=== PATIENT | female | born 1990 | race Two or more races ===

== ENCOUNTER 2018-12-26 17:59 | Emergency (ER) | payer OTHER | END 2018-12-26 21:30 | disposition home or self-care (01) | LOC: JER 17:59 ==

== ENCOUNTER 2019-01-06 12:16 | Emergency (ER) | payer OTHER ==
[2019-01-06 12:39] VITALS: BP 111/74; PULSE 86; TEMP 98.3; BMI 19.5
--- NOTE | 2019-01-06 12:57 | PDOC ---
History of Present Illness - General Chief Complaint: Cold Symptoms Stated Complaint: HEADACHE/FEVER Time Seen by Provider: 01/06/19 12:44 History Source: Patient Exam Limitations: No Limitations - History of Present Illness Associated Symptoms: reports: headache, sore throat. denies: chest pain/ soreness, cough, dizziness, earache, facial pain, fever/chills, nasal drainage, shortness of breath, sinus infection Past History - Travel Traveled outside of the country in the last 30 days: No Close contact w/someone who was outside of country & ill: No - Past Medical History Allergies/Adverse Reactions: Allergies Allergy/AdvReac Type Severity Reaction Status Date / Time No Known Allergies Allergy Verified 01/06/19 12:39 Home Medications: Ambulatory Orders Sulfamethoxazole/Trimethoprim [Bactrim Ds -] 1 tab PO BID #20 tablet 12/26/18 Diphenhydramine HCl [Benadryl -] 25 mg PO Q8H #21 capsule 01/06/19 Prednisone [Deltasone] 20 mg PO ACDIN 4 Days #8 tablet 01/06/19 Triamcinolone 0.5% Ointment [Aristocort 0.5% Ointment -] 1 applic TP BID 7 Days #1 tube 01/06/19 COPD: No - Suicide/Smoking/Psychosocial Hx Smoking History: Never smoked Have you smoked in the past 12 months: No Information on smoking cessation initiated: No Hx Alcohol Use: No Drug/Substance Use Hx: No Respiratory Specific PMHX - Complaint Specific PMHX Angina: No Review of Systems - Review of Systems Constitutional: Yes: Fever. No: Chills HEENTM: Yes: Throat Pain. No: Recent change in vision, Ear Discharge, Nose Pain , Nose Congestion, Tinnitus, Hearing Loss, Throat Swelling Respiratory: No: Shortness of Breath Cardiac (ROS): No: Chest Pain Integumentary: Yes: Flushing, Pruritus, Rash. No: Bruising, Change in Color, Dryness, Erythema Neurological: No: Dizziness *Physical Exam - Vital Signs Last Vital Signs Temp Pulse Resp BP Pulse Ox 98.3 F 86 16 111/74 100 01/06/19 12:37 01/06/19 12:37 01/06/19 12:37 01/06/19 12:37 01/06/19 12:37 - Physical Exam General Appearance: Yes: Nourished Respiratory/Chest: positive: Lungs Clear, Normal Breath Sounds Cardiovascular: positive: Regular Rhythm, Regular Rate, S1, S2 Extremity: positive: Normal Capillary Refill, Normal Inspection, Normal Range of Motion Integumentary: positive: Hives, Rash (macular rash mixed with hives noted in b/ l forearm, thighs, abd and face) Neurologic: positive: assistant operator II-XII NML intact, Fully Oriented, Alert, Normal Mood/ Affect, Normal Response, Motor Strength 11/22 Medical Decision Making - Medical Decision Making 01/06/19 13:15 28y/o F with pruritus rash X 2 days pt also c/o fever and sorethroat she finished a 10 days course of bactrim for UTI 2 days ago, this was her first time taking bactrim she denies SOB, throat discomfort, cough 01/06/19 14:42 RS neg likely a delay drug rash *DC/Admit/Observation/Transfer Diagnosis at time of Disposition: Rash, Sorethroat - Discharge Dispostion Condition at time of disposition: Stable Decision to Admit order: No - Prescriptions Prescriptions: Diphenhydramine HCl [Benadryl -] 25 mg PO Q8H #21 capsule Prednisone [Deltasone] 20 mg PO ACDIN 4 Days #8 tablet Triamcinolone 0.5% Ointment [Aristocort 0.5% Ointment -] 1 applic TP BID 7 Days #1 tube - Referrals Referrals: Eron Hector MD [Non Staff, Medical] - Jere Yang MD [Non Staff, Medical] - Nelson Monhaan [Staff Physician] - - Patient Instructions Printed Discharge Instructions: DI for Hives Additional Instructions: Your strep was negative today, a culture was sent out to the lab, if it becomes positive you will be contacted for antibiotics your rash is likely a delay drug reaction Take medication as prescribed follow up with dermatology Return to the ER if worsening symptoms occurs - Post Discharge Activity Forms/Work/School Notes: Back to Work
[2019-01-06] MEDS ORDERED: predniSONE 20 MG TABLET (UD) PO ONE (13:06)
[2019-01-06] MEDS ORDERED: LORATADINE 10 MG TABLET PO ONE (13:06)
[2019-01-06] MEDS ORDERED: LORATADINE 10 MG TABLET ONE (13:12)
[2019-01-06] MEDS ORDERED: predniSONE 20 MG TABLET (UD) ONE (13:12)
== END 2019-01-06 13:39 | disposition home or self-care (01) ==
LOC: JERFT 12:16
DX: J02.9 Acute pharyngitis, unspecified (principal); R21 Rash and other nonspecific skin eruption
CPT/HCPCS: 87070; 87880; 99281-25

== ENCOUNTER 2020-04-20 06:07 | Inpatient (IN) | payer BC ==
[2020-04-20] MEDS ORDERED: ELECTROLYTE-148 SOLN 500 ML IV ONE (08:05)
[2020-04-20] MEDS ORDERED: PROMETHAZINE HCL 25 MG/1 ML VIAL IVPB ONE (08:05)
[2020-04-20] MEDS ORDERED: BUTORPHANOL TARTRATE 1 MG/ML VIAL IVPB PRN (08:05)
[2020-04-20] MEDS ORDERED: ELECTROLYTE-148 SOLN 1,000 ML IV SCH ×2 (08:15)
[2020-04-20 08:37] VITALS: BMI 26.0
[2020-04-20 08:56] LABS: POC NITRAZINE NEG
[2020-04-20] MEDS ORDERED: AMPICILLIN - 2 GM in SODIUM CHLORIDE 100 ML IVPB ONE (09:03)
--- NOTE | 2020-04-20 09:03 | HP ---
Past Medical History - Primary Care Physician PCP:: Narcisa Moser - Admission Chief Complaint: SROM at 5 am. 37 week History Source: Patient Limitations to Obtaining History: No Limitations - Past Medical History ...: 1 ...Para: 0 ...Term: 0 ...: 0 ...Spon : 0 ...Induced : 0 ...Living Children: 0 ...Multiple Gestation: 0 ...LMP: 08/05/19 ... Weeks Gestation by Dates: 37.5 ...EDC by Dates: 05/06/20 ...EDC by Sono: 05/11/20 - Past Surgical History Past Surgical History: Yes: None Hx Myomectomy: No Hx Transabdominal Cerclage: No - Smoking History Smoking history: Never smoked Have you smoked in the past 12 months: No - Alcohol/Substance Use Hx Alcohol Use: No History of Substance Use: reports: None - Social History History of Recent Travel: No Home Medications - Allergies Allergies/Adverse Reactions: Allergies Allergy/AdvReac Type Severity Reaction Status Date / Time Sulfa (Sulfonamide Allergy Intermediate Hives Verified 04/20/20 07:03 Antibiotics) - Home Medications Home Medications: Ambulatory Orders Vitamins (Sjr) - 1 tab PO DAILY 04/20/20 Review of Systems - Review of Systems Constitutional: reports: No Symptoms Eyes: reports: No Symptoms HENT: reports: No Symptoms Neck: reports: No Symptoms Cardiovascular: reports: No Symptoms Respiratory: reports: No Symptoms Gastrointestinal: reports: No Symptoms Genitourinary: reports: No Symptoms Breasts: reports: No Symptoms Reported Musculoskeletal: reports: No Symptoms Integumentary: reports: No Symptoms Neurological: reports: No Symptoms Endocrine: reports: No Symptoms Hematology/Lymphatic: reports: No Symptoms Psychiatric: reports: No Symptoms Physical Exam - Maternity Vital Signs: Vital Signs Temperature 97.6 F 04/20/20 06:57 Pulse Rate 80 04/20/20 06:57 Respiratory Rate 18 04/20/20 06:57 Blood Pressure 116/80 04/20/20 06:57 O2 Sat by Pulse Oximetry (%) Constitutional: Yes: Well Nourished, No Distress Cardiovascular: Yes: WNL - Abdominal Exam/OB Fundal Height: 37 Number of Fetuses: Single Presentation: Vertex Contractions: Yes Regularity: Irritability Intensity: Unaware Monitor Mode: External Heart Rate Location: [facility] Category: I Decelerations: None - Vaginal Exam/OB Dilatation (cm): 1 Amniotic Membrane Status: Ruptured Amniotic Fluid: Yes: Clear Presentation: Vertex/Position Problem List - Problems (1) Spontaneous rupture of membranes Code(s): KXW0700 - (2) 37 weeks gestation of Code(s): Z3A.37 - 37 WEEKS GESTATION OF Assessment/Plan PROM 37 week Cat 1 GBS not in labor Plan Observe start pitocin if no labor
[2020-04-20 09:28] LABS: BASO % 0.5 % (0-2.0); EOS % 0.9 % (0-4.5); HEMATOCRIT 38.6 % (32.4-45.2); HEMOGLOBIN 13.3 GM/dL (10.7-15.3); LYMPH % 17.3 % (8-40); MCH 34.2 pg (25.7-33.7); MCHC 34.4 g/dl (32.0-36.0); MEAN CELL VOLUME 99.3 fl (80-96); MEAN PLT VOLUME 9.2 fl (7.5-11.1); MONO % 6.8 % (3.8-10.2); NEUT % 74.5 % (42.8-82.8); PLATELET COUNT 193 K/MM3 (134-434); RBC 3.89 M/mm3 (3.60-5.2); RDW 13.3 % (11.6-15.6); WHITE BLOOD COUNT 8.5 K/mm3 (4.0-10.0)
[2020-04-20 09:33] LABS: INR 0.85 (0.83-1.09)
[2020-04-20 09:36] LABS: ACTIVATED PTT 28.5 SECONDS (25.2-36.5)
[2020-04-20 09:57] LABS: BLOOD UREA NITROGEN 9.5 mg/dL (7-18); CALCIUM 8.7 mg/dL (8.5-10.1); CREATININE 0.6 mg/dL (0.55-1.3)
[2020-04-20] MEDS ORDERED: AMPICILLIN SODIUM 2 GM VIAL ONE (09:57)
[2020-04-20] MEDS ORDERED: AMPICILLIN SODIUM 1 GM VIAL ONE ×3 (14:11→22:02)
[2020-04-20] MEDS: AMPICILLIN - 1 GM in SODIUM CHLORIDE 100 ML IVPB SCH ×3 (14:23→22:05)
--- NOTE | 2020-04-20 22:31 | PN ---
Ante-Partal Exam - Subjective Subjective: Pt with contractions Vital Signs: Vital Signs Temperature 98.2 F 04/20/20 21:00 Pulse Rate 70 04/20/20 21:00 Respiratory Rate 20 04/20/20 21:00 Blood Pressure 106/77 04/20/20 21:00 O2 Sat by Pulse Oximetry (%) Bleeding: No Headache: No Visual changes: No Right upper quadrant pain: No - Contractions Contractions: Yes Regularity: Regular Intensity: Moderate Monitor Mode: External - Exam during Labor Variability: Moderate Heart Rate Location: [facility] Category: I Monitor Accelerations: Present Amniotic Membrane Status: Ruptured Presentation: Vertex - Assessment/Plan Assessment/Plan: PROM 37 week Cat 1 [facility]
[2020-04-20] MEDS ORDERED: OXYTOCIN 30 UNITS in 0.9% NS 30 UNIT/500 ML INFUS.BAG IVPB SCH (23:15)
[2020-04-21] MEDS ORDERED: AMPICILLIN SODIUM 1 GM VIAL ONE ×2 (01:57→06:24)
[2020-04-21] MEDS: AMPICILLIN - 1 GM in SODIUM CHLORIDE 100 ML IVPB SCH ×2 (02:00→06:22)
[2020-04-21] MEDS ORDERED: OXYTOCIN 30 UNITS in 0.9% NS 30 UNIT/500 ML INFUS.BAG IVPB ONE (04:27)
[2020-04-21] MEDS ORDERED: BUTORPHANOL TARTRATE 2 MG/ML VIAL ONE (05:25)
[2020-04-21] MEDS ORDERED: PROMETHAZINE HCL 25 MG/1 ML VIAL ONE (05:26)
[2020-04-21] MEDS ORDERED: OXYTOCIN 20 UNITS in 0.9% NS 20 UNIT/1,000 ML INFUS.BAG IV ONE (06:03)
[2020-04-21] MEDS ORDERED: LIDOCAINE HCL 1% PRESERVATIVE FREE - 30ML VIAL ONE (06:03)
[2020-04-21] MEDS ORDERED: BENZOCAINE 20% 57 GM BOTTLE TP PRN (07:21)
[2020-04-21] MEDS ORDERED: oxyCODONE HCL 5 MG TABLET PO PRN (07:21)
[2020-04-21] MEDS ORDERED: METHYLERGONOVINE MALEATE 0.2 MG/1 ML AMP IM PRN (07:21)
[2020-04-21] MEDS ORDERED: ACETAMINOPHEN 325 MG TABLET (FP) PO PRN (07:21)
[2020-04-21] MEDS ORDERED: BISACODYL 10 MG SUPP.RECT PR PRN (07:21)
[2020-04-21] MEDS ORDERED: IBUPROFEN 600 MG TABLET (FP) PO PRN (07:21)
[2020-04-21] MEDS ORDERED: WITCH HAZEL 50% (TUCKS) 40 PAD/JAR PAD TP PRN (07:21)
[2020-04-21] MEDS ORDERED: BENZOCAINE 28 GM HEMORRHOIDAL OINTMENT PR PRN (07:21)
--- NOTE | 2020-04-21 07:29 | PN ---
Delivery - Delivery Vaginal Delivery: No Problems, Spontaneous Type of Anesthesia: Local Episiotomy/Laceration: Right Mediolateral EBL (cc): 250 Delivery, Single - [place] Feeding Plan Initial Plan: Exclusive throughout hospitalization
[2020-04-21] MEDS ORDERED: OXYTOCIN 20 UNITS in 0.9% NS 20 UNIT/1,000 ML INFUS.BAG IV SCH (07:30)
[2020-04-21 07:43] LABS: CORD BASE EXCESS -0.5 mmol/L (0-2); CORD HCO3 26.2 mmHg (20-29); CORD pH 7.338 (7.14-7.44)
--- NOTE | 2020-04-22 07:05 | PN ---
Post Note - Post Date of Delivery: 04/21/20 Vital Signs: Vital Signs - 24 hr 04/21/20 04/21/20 04/21/20 07:15 07:30 07:45 Temperature 97.8 F Pulse Rate 79 68 75 Respiratory 18 18 18 Rate Blood Pressure 118/55 L 108/64 103/62 O2 Sat by Pulse 100 100 100 Oximetry (%) 04/21/20 04/21/20 04/21/20 08:00 09:15 14:17 Temperature 98.4 F 98.2 F Pulse Rate 74 81 85 Respiratory 18 20 20 Rate Blood Pressure 103/62 115/73 123/73 O2 Sat by Pulse 100 100 Oximetry (%) 04/21/20 04/21/20 04/22/20 17:19 22:00 06:00 Temperature 98.3 F 97.2 F L 98.1 F Pulse Rate 92 H 105 H 76 Respiratory 20 18 18 Rate Blood Pressure 117/62 120/68 124/81 O2 Sat by Pulse 97 Oximetry (%) Labs: Laboratory Results - last 24 hr 04/20/20 04/21/20 04/21/20 09:05 06:52 Unknown Cord Blood pH 7.338 Cord Blood PCO2 50.0 Cord Blood PO2 23.3 Cord Blood HCO3 26.2 Cord Base Excess -0.500 L COVID-19 (NAV) Not detected SARS-CoV-2 (PCR) Negative - Subjective Subjective: No Complaints - Objective Afebrile: Yes Breast: Not engorged Abdomen: Soft, Non-tender Uterus: Fundus firm, Non-tender Vagina: Scant lochia Extremities: Non-tender - Assessment/Plan (1) Spontaneous rupture of membranes Assessment: S/P Normal Plan: Routine Care
[2020-04-22 07:50] LABS: BASO % 0.5 % (0-2.0); HEMATOCRIT 33.5 % (32.4-45.2); HEMOGLOBIN 11.1 GM/dL (10.7-15.3); LYMPH % 21.6 % (8-40); MCH 33.1 pg (25.7-33.7); MCHC 33.2 g/dl (32.0-36.0); MEAN CELL VOLUME 99.6 fl (80-96); MEAN PLT VOLUME 8.9 fl (7.5-11.1); MONO % 5.5 % (3.8-10.2); NEUT % 71.4 % (42.8-82.8); PLATELET COUNT 187 K/MM3 (134-434); RBC 3.36 M/mm3 (3.60-5.2); RDW 13.2 % (11.6-15.6); WHITE BLOOD COUNT 10.1 K/mm3 (4.0-10.0)
--- NOTE | 2020-04-23 08:43 | DS ---
Physical Exam-COLOR FINISHER Vital Signs: Vital Signs Temperature 97.8 F 04/22/20 22:00 Pulse Rate 85 04/22/20 22:00 Respiratory Rate 20 04/22/20 22:00 Blood Pressure 107/70 04/22/20 22:00 O2 Sat by Pulse Oximetry (%) 97 04/21/20 22:00 Constitutional: Yes: Well Nourished, No Distress Neck: Yes: WNL Gastrointestinal: Yes: WNL, Soft Labs: CBC, BMP 04/22/20 07:20 04/20/20 09:05 Delivery - Delivery Vaginal Delivery: No Problems, Spontaneous Type of Anesthesia: None Episiotomy/Laceration: Right Mediolateral EBL (cc): 250 Delivery, Single - Stages of Labor Date 1st Stage Initiatied: 04/21/20 Time 1st Stage Initiated: 05:15 Date 2nd Stage Initiated: 04/21/20 Time 2nd Stage Initiated: 06:10 Date of Delivery: 04/21/20 Time of Delivery: 06:50 Time Placenta Delivered: 06:55 - 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 Present: No Infant Gender: Male Weight: 6 lb Position: OA Total Hours ROM (Hrs/Mins): 25h40m - 1 Minute Total Score: 9 5 Minutes Total Score: 9 - [place] Feeding Plan Initial Plan: Elected not to breastfeed exclusively throughout hospitalization Discharge Summary Problems reviewed: Yes Reason For Visit: ADMIT LABOR Current Active Problems 37 weeks gestation of (Acute) Spontaneous rupture of membranes (Acute) Procedures: Principal: Normal vaginal delivery Hospital Course: unremarkable Condition: Good - Instructions Diet, Activity, Other Instructions: Physical activity Resume your normal everyday activity as tolerated no heavy lifting or exercise until seen by your surgeon. You may walk unlimited shaina of and climb stairs. You may resume driving the car when you feel safe and comfortable behind the wheel. No sexual activity as instructed. Wound care If you have a bandage, leave it on, and keep dry for 48-72 hours. After that time discard the outer bandage. If they are tapes on the skin under the out of bandage leave them in place. They will peel off in the next 7 to 10 days. Do Not Peel them off. You may shower the day after surgery. If there are tapes present on the skin, you may shower over them. Diet There are no dietary restrictions. Eat healthy, high-fiber foods. Drink 6 to 8 glasses of liquid each day. This will assist in keeping your bowels are regular. Pain management You may take Tylenol or acetaminophen or Ibuprofen (for example, Motrin, Advil etc.) from my pain prescription medication is ordered should be taken as prescribed for moderate to severe pain. Call MD for any of the following: Severe pain not relieved by medication Fever of 101 or higher Excessive bleeding or drainage on dressing Inability to urinate Referrals: Narcisa Moser MD [Staff Physician] - Disposition: HOME - Home Medications Comprehensive Discharge Medication List: Ambulatory Orders Vitamins (Sjr) - 1 tab PO DAILY 04/20/20 Ibuprofen [Motrin -] 600 mg PO TID #21 tablet 04/21/20
[2020-04-23 10:01] VITALS: BP 113/78; PULSE 89; TEMP 98.2
== END 2020-04-23 11:25 | disposition home or self-care (01) | DRG 807 ==
LOC: JDEL 06:07 → JLDR 06:45 → J3W 04-21 09:23
PROVIDERS: ADMIT Obstetrics & Gynecology; ATTEND Obstetrics & Gynecology
PROC: 10E0XZZ Delivery of Products of Conception, External Approach (ICD-10-PCS; principal; 2020-04-21)
PROC: 0W8NXZZ Division of Female Perineum, External Approach (ICD-10-PCS; 2020-04-21)
DX: O42.12 Full-term premature rupture of membranes, onset of labor more than 24 hours following rupture (principal); Z37.0 Single live birth; Z3A.37 37 weeks gestation of pregnancy
CPT/HCPCS: 36415; 36600; 59409; 80048; 82803; 83986-QW; 85025; 85610; 85730; 86780; 86850; 86900; 86901; U0003